=== PATIENT | male | born 1945 | race Caucasian/White ===

== ENCOUNTER → 2016-10-13 | Outpatient (CLI) | payer OTHER | END | disposition home or self-care (01) | LOC: ROC 14:06 | PROVIDERS: ATTEND Radiology Radiation Oncology | DX: D43.2 Neoplasm of uncertain behavior of brain, unspecified (principal) | CPT/HCPCS: 99214; G0463 ==

== ENCOUNTER → 2016-11-22 | Outpatient (CLI) | payer OTHER | END | disposition home or self-care (01) | LOC: EDSTATUS 11-05 11:25 → ROC 11:03 | PROVIDERS: ATTEND Radiology Radiation Oncology | DX: D32.0 Benign neoplasm of cerebral meninges (principal); C61 Malignant neoplasm of prostate; Z92.3 Personal history of irradiation | CPT/HCPCS: 99213; G0463 ==

== ENCOUNTER → 2017-06-18 | Outpatient (CLI) | payer OTHER ==
[~2017-06-18] MED LIST: GADOBUTROL 10 MMOL/10 ML VIAL ONE
== END ==
LOC: CFH 10:32
PROVIDERS: ATTEND Radiology Radiation Oncology
DX: D32.0 Benign neoplasm of cerebral meninges (principal)
CPT/HCPCS: 70553; A9585

== ENCOUNTER → 2017-07-04 | Outpatient (CLI) | payer OTHER | LOC: ROC 07:44 | PROVIDERS: ATTEND Radiology Radiation Oncology | DX: Z02.9 Encounter for administrative examinations, unspecified (principal) ==

== ENCOUNTER → 2017-08-22 | Outpatient (CLI) | payer OTHER | END | disposition home or self-care (01) | LOC: ROC 07:45 | PROVIDERS: ATTEND Radiology Radiation Oncology | DX: Z08 Encounter for follow-up examination after completed treatment for malignant neoplasm (principal); D32.0 Benign neoplasm of cerebral meninges; C61 Malignant neoplasm of prostate; D04.9 Carcinoma in situ of skin, unspecified | CPT/HCPCS: 99213; G0463 ==

== ENCOUNTER 2018-07-04 08:07 | Outpatient (CLI) | payer OTHER | END 2018-07-04 23:59 | disposition home or self-care (01) | LOC: ROC 08:07 | PROVIDERS: ATTEND Radiology Radiation Oncology | DX: D32.0 Benign neoplasm of cerebral meninges (principal) | CPT/HCPCS: 99212; G0463 ==